=== PATIENT | female | born 1980 | race Caucasian/White ===

== ENCOUNTER → 2019-08-18 | Outpatient (REF) | payer OTHER ==
[2019-08-22 08:20] LABS: HPV HYBRID CAPTURE II Negative (Negative)
== END ==
LOC: M LAB REF 10:55
PROVIDERS: ATTEND Advanced Practice Midwife
DX: N76.0 Acute vaginitis (principal)

== ENCOUNTER → 2020-06-24 | Outpatient (REF) | payer OTHER, MEDICAID ==
[2020-06-25 13:47] LABS: APPEARANCE, URINE CLEAR (CLEAR); BACTERIA, URINE AUTO NEGATIVE (NEGATIVE); BILIRUBIN, URINE AUTO NEGATIVE (NEGATIVE); BLOOD, URINE BLOOD 3+ (NEGATIVE); COLOR, URINE YELLOW (YELLOW); GLUCOSE, URINE (UA) AUTO NEGATIVE (NEGATIVE); KETONE, URINE AUTO NEGATIVE (NEGATIVE); LEUKOCYTE ESTERASE, URINE AUTO NEGATIVE (NEGATIVE); MUCUS, URINE SMALL (NEGATIVE); NITRITE, URINE AUTO NEGATIVE (NEGATIVE); PROTEIN, URINE AUTO NEGATIVE (NEGATIVE); RBC, URINE AUTO 60 /HPF (0-3); SPECIFIC GRAVITY URINE AUTO 1.017 (1.002-1.035); SQUAMOUS EPITHELIAL CELL UR AU 1 /HPF (0-6); UROBILINOGEN, URINE AUTO 0.2 mg/dL (0.0-2.0); WBC, URINE AUTO 2 /HPF (0-3)
== END ==
LOC: M LAB REF 11:43
PROVIDERS: ATTEND Family Medicine Addiction Medicine
DX: F11.21 Opioid dependence, in remission (principal); R31.29 Other microscopic hematuria

== ENCOUNTER → 2020-08-26 | Outpatient (CLI) | payer OTHER ==
[~2020-08-26] MED LIST: ISOVUE-370 76% 100ML VIAL As Ordered ONE
--- NOTE | 2020-08-26 16:07 | REP ---
INDICATION: HEMATURIA. COMPARISON: None TECHNIQUE: Axial precontrast, contrast-enhanced, and delayed images from the lung bases to the pubic symphysis using 100 cc Isovue 370 intravenous contrast material. Coronal and sagittal reformations obtained. This CT examination was performed using the following dose reduction techniques: Automated exposure control, adjustment of mA and/or kv according to the patient's size, and the use of iterative reconstruction technique. FINDINGS: Evaluation of the urinary tract system demonstrates normal appearance to the bilateral kidneys, ureters and bladder. Normal symmetric bilateral renal nephrograms are appreciated along with normal symmetric excretion to the collecting system. No evidence for renal cyst or mass. No hydroureteronephrosis or perinephric stranding. No nephroureterolithiasis. Liver, spleen, pancreas, gallbladder, and bilateral adrenal glands are normal. The enteric system including stomach, small, and large bowel appears normal. No evidence for obstruction or acute inflammatory process. Pelvis demonstrates normal bladder and age-appropriate prostate/seminal vesicles. No ascites. No free air. No intraperitoneal or retroperitoneal adenopathy. Abdominal aorta and vasculature appear normal. Musculoskeletal structures are intact and without acute osseous abnormality. IMPRESSION: No acute abdominopelvic pathology appreciated. Specifically, normal appearance of the urinary tract system. <Electronically signed by Dawood Ireland > 08/26/20 [id number]
== END ==
LOC: M RAD 14:30
PROVIDERS: ATTEND Family Medicine Addiction Medicine
DX: R31.29 Other microscopic hematuria (principal)
CPT/HCPCS: 74178; Q9967

== ENCOUNTER → 2021-12-01 | Outpatient (REF) | payer OTHER | LOC: M LAB REF 17:04 | PROVIDERS: ATTEND Nurse Practitioner Family | DX: J02.9 Acute pharyngitis, unspecified (principal) ==